=== PATIENT | female | born 1985 | race Caucasian/White ===

== ENCOUNTER 2023-04-03 10:57 | Emergency (ER) | payer OTHER, SELFPAY ==
[2023-04-03] VITALS (7 sets, daily range): BP systolic 113–150; BP diastolic 64–95; BMI 28.1
--- NOTE | 2023-04-03 11:14 | ED.GENMED ---
History of Present Illness
<La Caal PA-C - Last Filed: 04/03/23 15:46>
General
Chief Complaint: Problems
Source: patient
Exam Limitations: none
Time Seen by Provider: 04/03/23 11:12
Nursing documentation reviewed up to this point in time: agreed with
Travel History
Have you had any contact with someone who has COVID-19?: No
Do you have any symptoms of coronavirus? Fever > 100 degrees, chills, cough, shortness of breath, sore throat, loss of taste or smell, muscle aches, or headache?: No
History of Present Illness
History of Present Illness:
This is a 37-year-old female at 24 weeks gestation with a PMH of preeclampsia, essential HTN presenting today with worsening shortness of breath and fatigue for the past 2 days. Patient reports that she has had shortness of breath throughout
her however the past 2 days, shortness of breath has becoming more severe. Normally she will just have shortness of breath with exertion but now she has it at rest. 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
pressure and noticed it was elevated. Patient reports that she does have a history of hypertension and takes labetalol for it daily. She reports that her blood pressure has been normal and well-controlled throughout her except today it
was elevated. She called her obstetric office to told her to come reports the emergency department today. She has associated fatigue. She denies headaches, nausea, vomiting, abdominal pain, decreased movements, vaginal bleeding, pleuritic
chest pain, back pain.
Review of Systems
<La Caal PA-C - Last Filed: 04/03/23 15:46>
Review of Systems
All Other Systems: ROS reviewed and negative except as documented in HPI and ROS
Phy Exam
<La Caal PA-C - Last Filed: 04/03/23 15:46>
Physical Exam
Physical Exam:
General: Patient is well-appearing in no acute distress
Skin: Skin is warm and dry, no rashes or lesions
Cardiac: Patient regular rate and rhythm, no murmurs
Pulm: Patient appears to have some conversational dyspnea, otherwise lung sounds are equal on both sides with no wheezes, rales or rhonchi
Abdomen: Gravid uterus. No abdominal tenderness.
Course
<La Caal PA-C - Last Filed: 04/03/23 15:46>
Orders/Labs/Results
Orders:
Orders
04/03/23 11:44
Electrocardiogram (*1) Urgent
Reason for Study: Shortness of Breath
EKG- Treatment ONCE
04/03/23 11:45
US Legs, Bilateral [US Periph Venous LOWER Ext Juan C] Urgent
Comment:
Reason For Exam: shortness of breath
04/03/23 11:55
Complete Blood Count/With Diff Urgent
Comprehensive Metabolic Panel Urgent
Urinalysis Reflex To Culture Urgent
Date Specimen was Collected: 04/03/23
Time Specimen was Collected: 11:53
Urine Microscopic Reflex Cult Urgent
04/03/23 12:00
Heart Tones ONCE
04/03/23 13:09
CT Chest Pe Study Urgent
Comment:
Reason For Exam: shortness of breath
Abnormal Lab Results
04/03/23
11:55
RBC 4.11 L 10^6/uL
(4.20-5.40)
Hct 35.4 L %
(37.0-47.0)
MCH 31.1 H pg
(27.0-31.0)
Abs Immat Gran (auto) 0.2 H 10^3/uL
(0-0.05)
Absolute Neuts (auto) 7.4 H 10^3/uL
(1.4-6.5)
Immature Gran % 2.4 H %
(0-0.5)
Neutrophils % 75.6 H %
(42.2-75.2)
Lymphocytes % 16.0 L %
(20.5-51.1)
Chloride 108 H mmol/L
(98-107)
Carbon Dioxide 20 L mmol/L
(22-30)
Creatinine 0.5 L mg/dL
(0.6-1.0)
Leukocyte Esterase Rfl Trace A
(Negative)
04/03/23 11:55
04/03/23 11:55
Vital Signs
Initial and Last Documented VS:
Initial Vital Signs
Temp Pulse Resp BP Pulse Ox
98.8 F 87 18 150/95 100
04/03/23 11:03 04/03/23 11:03 04/03/23 11:03 04/03/23 11:03 04/03/23 11:03
Last Documented Vital Signs
Temp Pulse Resp BP Pulse Ox
98.8 F 82 16 113/64 97
04/03/23 11:03 04/03/23 16:06 04/03/23 16:06 04/03/23 16:06 04/03/23 16:06
Information
Weeks gestation: Weeks: (24)
Location: Location: (intrauterine)
<Vladimir Whitney MD - Last Filed: 04/06/23 15:05>
Orders/Labs/Results
Orders:
Orders
04/03/23 11:44
Electrocardiogram (*1) Urgent
Reason for Study: Shortness of Breath
EKG- Treatment ONCE
04/03/23 11:45
US Legs, Bilateral [US Periph Venous LOWER Ext Juan C] Urgent
Comment:
Reason For Exam: shortness of breath
04/03/23 11:55
Complete Blood Count/With Diff Urgent
Comprehensive Metabolic Panel Urgent
Urinalysis Reflex To Culture Urgent
Date Specimen was Collected: 04/03/23
Time Specimen was Collected: 11:53
Urine Microscopic Reflex Cult Urgent
04/03/23 12:00
Heart Tones ONCE
04/03/23 13:09
CT Chest Pe Study Urgent
Comment:
Reason For Exam: shortness of breath
Abnormal Lab Results
04/03/23
11:55
RBC 4.11 L 10^6/uL
(4.20-5.40)
Hct 35.4 L %
(37.0-47.0)
MCH 31.1 H pg
(27.0-31.0)
Abs Immat Gran (auto) 0.2 H 10^3/uL
(0-0.05)
Absolute Neuts (auto) 7.4 H 10^3/uL
(1.4-6.5)
Immature Gran % 2.4 H %
(0-0.5)
Neutrophils % 75.6 H %
(42.2-75.2)
Lymphocytes % 16.0 L %
(20.5-51.1)
Chloride 108 H mmol/L
(98-107)
Carbon Dioxide 20 L mmol/L
(22-30)
Creatinine 0.5 L mg/dL
(0.6-1.0)
Leukocyte Esterase Rfl Trace A
(Negative)
04/03/23 11:55
04/03/23 11:55
Vital Signs
Initial and Last Documented VS:
Initial Vital Signs
Temp Pulse Resp BP Pulse Ox
98.8 F 87 18 150/95 100
04/03/23 11:03 04/03/23 11:03 04/03/23 11:03 04/03/23 11:03 04/03/23 11:03
Last Documented Vital Signs
Temp Pulse Resp BP Pulse Ox
98.8 F 82 16 113/64 97
04/03/23 11:03 04/03/23 16:06 04/03/23 16:06 04/03/23 16:06 04/03/23 16:06
<La Caal PA-C - Last Filed: 04/03/23 15:46>
MDM/Problems Addressed
Differential Diagnosis Includes:
Differentials include preeclampsia, PE, physiologic dyspnea of , upper respiratory tract infection, cardiomyopathy
MDM/Problems Addressed:
Shortness of breath
Chronic conditions affecting care:
HTN
Chronic conditions affecting care: HTN
Acute Exacerbation and/or Progression of Chronic Illness:
HTN
<La Caal PA-C - Last Filed: 04/03/23 15:46>
*Pulse Oximetry
Patient hypoxic: no
*EKG
Interpreted by ED Provider?: Yes
EKG Intrepretation Date: 04/03/23
Interpretation: normal
Comparison EKG: no comparison EKG present
Heart Rate: 79
Rate: normal
Rhythm: sinus
[place]: normal axis
Interval: normal interval and normal QT interval
QRS Pattern: normal QRS
Ischemia: no ischemia
*Critical Care Note
Total Time (30-74mins, 75-104mins- exclusive of procedures): Not Applicable
Data Reviewed
Review of Other/Old Records Reveals: Records and Discharge Summary (Reviewed labor and delivery summary from 08/12/2020)
Prescriptions/Medications Considered But Not Given:
n/a
Further Testing Considered But Not Given:
n/a
<YOHANNES Bartlett Last Filed: 04/03/23 15:46>
Patient Management
Discussion with other providers: Other (OBGYN tonger)
Escalation/DeEscalation of care consider admission/obs:
This is a 37-year-old female at 24 weeks gestation who has a past medical history of hypertension and preeclampsia is presenting to emergency department today with worsening shortness of breath. She states that she normally has shortness of breath
during her pregnancies however she now has it at rest. She denies any headaches. Denies any changes to her urinary habits. Here in emergency department, her CBC and CMP was unremarkable. There is no evidence of proteinuria. Her her ultrasound
of the bilateral lower extremities to showed no evidence of DVT. At this time, we have no recent to explain the shortness of breath. I spoke to the CHIEF [employer] OPERATOR on-call who is in agreement with plan and agrees to proceed with CT perfusion study. CT
scan of the negative for PE. Will send patient home. Patient has a follow-up appointment with OB tomorrow.
ED Attending Note
<La Caal PA-C - Last Filed: 04/03/23 15:46>
-
Portions of this chart may have been created with voice recognition software.� Occasional wrong word or��sound alike� substitutions may have occurred due to the inherent limitations of voice recognition software.
<Vladimir Whitney MD - Last Filed: 04/06/23 15:05>
ED Attending Note
Patient seen and examined by attending physician: Yes
I performed the substantive portion of visit, reviewed & personally made and approve the management plan that is documented in note by myself or VIANEY.: Yes
I performed a history and physical exam of patient and discussed management with resident, I reviewed resident's note and agree with documented findings and plan of care.: No
ED Attending Note:
37-year-old female G2, P1, 24 weeks complaining of shortness of breath. Started yesterday. Patient had preeclampsia during her first . She has been on labetalol prior to this . She has no unusual swelling no chest pain
no pleuritic pain no fever cough etc. Shortness of breath started yesterday and is vague in nature.
GENERAL: Alert and oriented in no apparent distress
EYE: Orbits normal.
NECK: Supple
CARDIAC: Regular rate and rhythm without any obvious murmurs.
LUNGS: Clear breath sounds,normal
ABDOMEN: Soft, without focal tenderness or distention. Normal suprapubic fullness consistent with
NEUROLOGICAL: Alert and oriented , grossly non-focal
SKIN: Warm and dry, no rash or lesion, no discoloration, skin intact.
MUSCULOSKELETAL: No edema,no deformity.Good color
PSYCH: Normal and appropriate interaction.
Impression, dyspnea, . History of preeclampsia. No clinical findings to suspect preeclampsia issue. No leg swelling. Has not had recent proteinuria. Lungs are clear and equal. However workup in progress. Pulmonary emboli also has to
be entertained. Leg ultrasounds ordered. If this is negative, and we find no other explanation CT scan will be warranted.
Discharge Plan
Departure
Patient Disposition: Home (Routine Discharge)
Date of Disposition: 04/03/23
Time of Disposition: 15:24
Patient with high blood pressure during this ER visit?: Yes
Condition: Good
Discharge Problem:
Shortness of breath
Instructions: Shortness of breath (dyspnea), symptoms, BLOOD PRESSURE
Prescriptions:
No Action
doxylamine-pyridoxine (vit B6) [Diclegis] 1 EACH tablet,delayed release (DR/EC)
1 ea PO DAILY
[id number] fum-folic 1 EACH tablet
1 ea PO DAILY
ibuprofen 600 MG tablet
600 mg PO Q4HPRN PRN (Reason: moderate pain) Qty: 90 0RF
Referrals:
UNKNOWN - PT DOES,NOT KNOW [Unknown Provider] -
Activity Restrictions/Additional Instructions:
As discussed, please follow-up with your OB tomorrow.
Please return to the emergency department should you have worsening shortness of breath, chest pain, swelling in your legs, abdominal pain, vaginal bleeding, decreased movement redness in your legs, urinary changes, vision changes, headache,
or other concerning signs or symptoms.
Interventions
Interventions:
*Risk Screen - Suicide Last Done: 04/03/23 11:03
*General Assessment Last Done: 04/03/23 11:03
*Neglect/Abuse Screening Last Done: 04/03/23 11:03
ED- Fall Risk Assessment Last Done: 04/03/23 11:52
*ED COVID-19 Vaccine History Last Done: 04/03/23 11:03
*Nursing Disposition Last Done: 04/03/23 16:06
ED-Female Genitourinary Assessment Last Done: 04/03/23 13:18
Discharge Date and Time
Discharge Date/Time: 04/03/23 16:05
[2023-04-03 12:05] LABS: % Basophils 0.6 % (0-2); % Immature Granulocytes 2.4 % (0-0.5); % Monocytes 4.4 % (1.7-9.3); % Neutrophils 75.6 % (42.2-75.2); Absolute Basophils 0.1 10^3/uL (0-0.2); Absolute Eosinophils 0.1 10^3/uL (0-0.7); Absolute Immature Granulocytes 0.2 10^3/uL (0-0.05); Absolute Lymphocytes 1.6 10^3/uL (1.2-3.4); Absolute Monocytes 0.4 10^3/uL (0.1-0.6); Absolute Neutrophils 7.4 10^3/uL (1.4-6.5); Hematocrit 35.4 % (37.0-47.0); Hemoglobin 12.8 g/dL (12.0-16.0); Mean Corp Hgb Conc. 36.2 g/dL (33.0-37.0); Mean Corpuscular Hgb 31.1 pg (27.0-31.0); Mean Corpuscular Volume 86.1 fL (81.0-99.0); Mean Platelet Volume 9.1 fL (7.4-10.4); Nucleated Red Blood Cells % 0 %; Platelet Count 237 10^3/uL (130-400); Red Blood Cell Count 4.11 10^6/uL (4.20-5.40); Red Cell Dist. Width 13.6 % (11.5-14.5); White Blood Cell Count 9.8 10^3/uL (4.8-10.8)
[2023-04-03 12:22] LABS: Urine Albumin Negative (Neg - Trace); Urine Bilirubin Negative (Negative); Urine Character Clear (Clear); Urine Color Yellow; Urine Glucose Negative (Negative); Urine Ketone Negative (Negative); Urine Leukocyte Trace (Negative); Urine Nitrite Negative (Negative); Urine Occult Blood Negative (Negative); Urine Urobilinogen Negative (Neg - 1+)
[2023-04-03 12:27] LABS: ALT (SGPT) 17 U/L (0-35); AST (SGOT) 25 U/L (14-36); Albumin 4.2 g/dl (3.5-5.0); Alkaline Phosphatase 73 U/L (38-126); Blood Urea Nitrogen 9 mg/dl (7-17); Calcium 9.1 mg/dl (8.4-10.2); Carbon Dioxide 20 mmol/L (22-30); Chloride 108 mmol/L (98-107); Estimated Creatinine Clearance > 125 ml/min; Glucose 81 mg/dl (70-99); Potassium 3.8 mmol/L (3.5-5.1); Sodium 135 mmol/L (135-145); Total Bilirubin 0.5 mg/dl (0.2-1.3); Total Protein 6.9 g/dl (6.3-8.2); eGFR > 60.00
[2023-04-03 12:41] LABS: Urine Amorphous Seen; Urine Mucus Few; Urine Squamous Cell >30 /LPF (Few)
[2023-04-03 12:43] LABS: Urine Red Blood Cell 0-2 /HPF (0-2); Urine White Cell 0-2 /HPF (0-5)
--- NOTE | 2023-04-03 16:06 | EDRN ---
Reviewed discharge instructions with patient. Verbalized understanding. Ambulated with steady gait to the lobby.
== END 2023-04-03 16:05 | disposition home or self-care (01) ==
LOC: EMR 10:57
PROVIDERS: Physician Assistant; EMERGENCY PHYSICIAN Emergency Medicine; FAMILY PHYSICIAN Internal Medicine; REFERRING PHYSICIAN Obstetrics & Gynecology
DX: O26.892 Other specified pregnancy related conditions, second trimester (principal); R06.02 Shortness of breath; Z3A.24 24 weeks gestation of pregnancy
CPT/HCPCS: 99285; 71275; 80053; 81003; 81015; 85025; 93005; 93970; Q9967

== ENCOUNTER → 2023-06-22 13:49 | Outpatient (REF) | payer OTHER, SELFPAY | LOC: PNTC 13:49 | PROVIDERS: ATTENDING PHYSICIAN Obstetrics & Gynecology | DX: O13.9 Gestational [pregnancy-induced] hypertension without significant proteinuria, unspecified trimester (principal) | CPT/HCPCS: 59025; 76815 ==

== ENCOUNTER 2023-07-19 19:16 | Inpatient (IN) | payer OTHER, SELFPAY ==
[2023-07-19 19:28] VITALS: BMI 29.1
[2023-07-19 20:03] VITALS: BP 132/89
[2023-07-19] MEDS: LR 1000 IV ×2 (20:15→22:30)
[2023-07-19 20:25] LABS: % Basophils 0.3 % (0-2); % Eosinophils 1.2 % (0-6); % Immature Granulocytes 1.7 % (0-0.5); % Lymphocytes 14.5 % (20.5-51.1); % Monocytes 5.9 % (1.7-9.3); % Neutrophils 76.4 % (42.2-75.2); Absolute Eosinophils 0.1 10^3/uL (0-0.7); Absolute Immature Granulocytes 0.2 10^3/uL (0-0.05); Absolute Lymphocytes 1.3 10^3/uL (1.2-3.4); Absolute Monocytes 0.5 10^3/uL (0.1-0.6); Absolute Neutrophils 6.8 10^3/uL (1.4-6.5); Hematocrit 34.7 % (37.0-47.0); Hemoglobin 12.5 g/dL (12.0-16.0); Mean Corpuscular Hgb 30.5 pg (27.0-31.0); Mean Corpuscular Volume 84.6 fL (81.0-99.0); Mean Platelet Volume 9.8 fL (7.4-10.4); Nucleated Red Blood Cells % 0 %; Platelet Count 207 10^3/uL (130-400); Red Cell Dist. Width 13.5 % (11.5-14.5)
[2023-07-19 20:27] LABS: Urine Albumin Trace (Neg - Trace); Urine Bilirubin 1+ (Negative); Urine Character Clear (Clear); Urine Color Yellow; Urine Glucose 2+ (Negative); Urine Ketone Trace (Negative); Urine Leukocyte Trace (Negative); Urine Nitrite Negative (Negative); Urine Occult Blood Negative (Negative); Urine Specific Gravity 1.025 (<1.030); Urine Urobilinogen Negative (Neg - 1+)
[2023-07-19 20:34] LABS: Urine Bacteria Few (Negative); Urine Red Blood Cell 0-2 /HPF (0-2)
[2023-07-19 20:39] LABS: ALT (SGPT) 13 U/L (0-35); AST (SGOT) 20 U/L (14-36); Albumin 3.6 g/dl (3.5-5.0); Alkaline Phosphatase 129 U/L (38-126); Blood Urea Nitrogen 15 mg/dl (7-17); Calcium 9.5 mg/dl (8.4-10.2); Carbon Dioxide 17 mmol/L (22-30); Chloride 108 mmol/L (98-107); Estimated Creatinine Clearance > 125 ml/min; Glucose 99 mg/dl (70-99); Potassium 3.9 mmol/L (3.5-5.1); Sodium 134 mmol/L (135-145); Total Bilirubin 0.4 mg/dl (0.2-1.3); Total Protein 6.3 g/dl (6.3-8.2); eGFR > 60.00
[2023-07-19 20:45] LABS: Urine Protein 7 mg/dl
[2023-07-19] MEDS: SUBLIMAZE 100 MCG EPIDURAL (22:05)
[2023-07-19] MEDS: FENTANYL/BUPIVACAINE 100 EPIDURAL (22:05)
[2023-07-20] MEDS: PITOCIN 30 UNITS/NSS 500 ML IV ×2 (00:27→03:31)
[2023-07-20] MEDS: METHERGINE INJECTION 0.200000000000000011 MG IM (04:13)
[2023-07-20] MEDS: CYTOTEC 800 MCG RECTAL (04:37)
[2023-07-20] MEDS: TRANDATE 100 MG PO ×2 (07:42→19:53)
[2023-07-20] MEDS: PRENATAL PLUS 1 TABLET PO (07:42)
[2023-07-20] MEDS: TYLENOL 650 MG PO ×2 (13:01→18:19)
[2023-07-20] MEDS: MOTRIN 600 MG PO (18:19)
[2023-07-21 04:49] LABS: Hematocrit 31.9 % (37.0-47.0); Hemoglobin 11.3 g/dL (12.0-16.0)
[2023-07-21] MEDS: PRENATAL PLUS 1 TABLET PO (07:27)
[2023-07-21] MEDS: MOTRIN 600 MG PO (07:27)
[2023-07-21] MEDS: TRANDATE 100 MG PO (07:28)
[2023-07-21] MEDS: TYLENOL 650 MG PO (07:28)
[2023-07-21] MEDS: SENOKOT-S 1 TABLET PO (07:28)
[2023-07-21 15:08] LABS: Syphilis/T. pallidum Ab Reflex Negative (Negative)
== END 2023-07-21 12:26 | disposition home or self-care (01) | DRG 806 ==
LOC: LDRP 19:16
PROVIDERS: ADMITTING PHYSICIAN Obstetrics & Gynecology; FAMILY PHYSICIAN Internal Medicine
PROC: 10E0XZZ Delivery of Products of Conception, External Approach (ICD-10-PCS; 2023-07-20)
PROC: 10907ZC Drainage of Amniotic Fluid, Therapeutic from Products of Conception, Via Natural or Artificial Opening (ICD-10-PCS; 2023-07-20)
DX: O10.02 Pre-existing essential hypertension complicating childbirth (principal); O72.1 Other immediate postpartum hemorrhage; Z37.0 Single live birth; Z3A.39 39 weeks gestation of pregnancy; O69.81X0 Labor and delivery complicated by cord around neck, without compression, not applicable or unspecified; O99.344 Other mental disorders complicating childbirth; F41.9 Anxiety disorder, unspecified
CPT/HCPCS: 88307; 36415; 59025; 80053; 81003; 81015; 82570; 84156; 85014; 85018; 85025; 86780; 86850; 86900; 86901